=== PATIENT | female | born 1970 | race Caucasian/White ===

== ENCOUNTER 2019-02-06 22:54 | Outpatient (CLI) | payer BC | END 2019-02-06 22:55 | disposition critical access hospital (66) | LOC: EMS 22:54 | PROVIDERS: ATTEND Surgery | DX: R11.2 Nausea with vomiting, unspecified (principal); R09.89 Other specified symptoms and signs involving the circulatory and respiratory systems; F41.9 Anxiety disorder, unspecified | CPT/HCPCS: A0425; A0427 ==

== ENCOUNTER 2019-02-06 23:32 | Emergency (ER) | payer BC ==
--- NOTE | 2019-02-06 23:36 | ED Physician Documentation ---
PD HPI NVD - Stated complaint Stated Complaint: N/V - History obtained from History obtained from: Patient - History of Present Illness Timing - onset: Today Timing - duration: Minutes (Just prior to arrival) Timing - details: Abrupt onset Associated symptoms: No: Fever, Chest pain Contributing factors: No: Sick contact, Bad food Similar symptoms before: Diagnosis (Reports similar symptoms when she had a pulmonary embolus) Recently seen: Not recently seen - Additonal information Additional information: This is a 48-year-old woman who presents by ambulance with complaints that she was vomiting and passing out at home. She has not been around anyone that she knows has been sick and has not eaten any bad food had the same thing that her ate tonight. She was feeling nauseous and everything was spinning prior to vomiting. She had 3 glasses of wine with dinner over about the course of 2 hours so when she started to get the symptoms she went in and drink a bottle of water she tried to sleep but apparently got up and passed out on the living room couch while she was sitting up and then began vomiting. Her says that he witnessed the syncopal episode was sitting next to her on the couch when it happened. It was only a few seconds. There was no seizure activity no incontinence. Patient is complaining now being very chilled and short of breath. She was given some medications in route for the vomiting. She feels like her toes are tingling ever since the room started spinning. Their biggest concern was that she had a pulmonary embolus last year and her symptoms were very similar and her found her "seizing in the bathroom". She was initially treated with Coumadin and then Xarelto. She is not currently on any blood thinners other than aspirin and they are monitoring her D-dimers which have been elevated in the 400 range is even as of November of this year. Patient did have a very busy day spent at pressure washing the house with her . She thought that some dust might of gotten flared up because she was having some mild allergy symptoms with some congestion. She is also been in the middle of a Reanna's flare since November of this year and has had some joint swelling associated with that but denies any peripheral edema. Review of Systems Constitutional: reports: Chills. denies: Fever Eyes: denies: Loss of vision Nose: reports: Rhinorrhea / runny nose, Congestion Throat: denies: Sore throat Cardiac: denies: Chest pain / pressure, Palpitations, Pedal edema Respiratory: reports: Dyspnea. denies: Cough GI: reports: Nausea, Vomiting. denies: Abdominal Pain, Diarrhea : denies: Dysuria, Frequency Skin: denies: Rash Musculoskeletal: reports: Joint swelling Neurologic: reports: Syncope. 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) PD PAST MEDICAL HISTORY - Past Medical History Cardiovascular: Pulmonary embolism Endocrine/Autoimmune: Other (Reanna's thyroiditis) - Present Medications Home Medications: Ambulatory Orders Medication Instructions Recorded Confirmed Aspirin Chewable [[place] 81 mg PO DAILY 02/07/19 02/07/19 Aspirin] Natural Blood Thinners 02/07/19 Thyroid,Pork [[place] Thyroid] 120 mg PO DAILY 02/07/19 02/07/19 - Allergies Allergies/Adverse Reactions: Allergies Allergy/AdvReac Type Severity Reaction Status Date / Time No Known Drug Allergies Allergy Verified 02/06/19 23:38 - Living Situation Living Situation: reports: With spouse/s.o. Living Arrangement: reports: At home - Social History Does the pt drink ETOH?: Yes ETOH Use: Wine PD ED PE NORMAL - Vitals Vital signs reviewed: Yes (Patient is shivering almost uncontrollably.) - General General: Alert and oriented X 3, Well developed/nourished - HEENT HEENT: Atraumatic, PERRL, EOMI, Other (Mucous membranes are dry) - Neck Neck: Supple, no meningeal sign, No adenopathy - Cardiac Cardiac: RRR, No murmur - Respiratory Respiratory: No respiratory distress, Clear bilaterally - Abdomen Abdomen: Normal bowel sounds, Soft, Non tender, No organomegaly - Derm Derm: Normal color, Warm and dry, No rash - Extremities Extremities: No edema - Neuro Neuro: Alert and oriented X 3, Normal speech, Other (There are no gross neurological deficits) - Psych Psych: Normal mood, Normal affect Results - Vitals Vitals: Vital Signs - 24 hr 02/06/19 02/07/19 02/07/19 23:34 01:26 02:32 Temperature 36.5 C 36.6 C 36.6 C Heart Rate 92 98 92 Respiratory 18 18 18 Rate Blood Pressure 144/85 H 142/84 H 136/80 H O2 Saturation 100 96 94 Oxygen O2 Source Room air - EKG (time done) 0001 Rate: Rate (enter#) Rhythm: NSR Intervals: Normal [place] Ischemia: Q waves (III), Non specific changes Compare to prior EKG: Old EKG unavailable - Labs Labs: Laboratory Tests 02/06/19 02/06/19 02/06/19 23:53 23:59 23:59 WBC 9.0 RBC 4.67 Hgb 13.8 Hct 41.5 MCV 88.8 MCH 29.4 MCHC 33.1 RDW 14.3 Plt Count 234 MPV 8.5 Neut # (Auto) 6.2 Lymph # (Auto) 1.8 Piatt # (Auto) 0.7 Eos # (Auto) 0.2 Baso # (Auto) 0.1 Absolute Nucleated RBC 0.00 Nucleated RBC % 0.0 D-Dimer 212.8 Sodium Potassium Chloride Carbon Dioxide Anion Gap BUN Creatinine Estimated GFR (MDRD) Glucose Calcium Total Bilirubin AST ALT Alkaline Phosphatase Total Protein Albumin Globulin Albumin/Globulin Ratio Lipase TSH Urine Color YELLOW Urine Clarity CLEAR Urine pH 7.0 Ur Specific [place] 1.015 Urine Protein NEGATIVE Urine Glucose (UA) NEGATIVE Urine Ketones >=80 H Urine Occult Blood NEGATIVE Urine Nitrite NEGATIVE Urine Bilirubin NEGATIVE Urine Urobilinogen 0.2 (NORMAL) Ur Leukocyte Esterase NEGATIVE Ur Microscopic Review NOT INDICATED Urine Culture Comments NOT INDICATED Urine Opiates Screen NEGATIVE Ur Oxycodone Screen NEGATIVE Urine Methadone Screen NEGATIVE Ur Propoxyphene Screen NEGATIVE Ur Barbiturates Screen NEGATIVE Ur Tricyclics Screen NEGATIVE Ur Phencyclidine Scrn NEGATIVE Ur Amphetamine Screen NEGATIVE U Methamphetamines Scrn NEGATIVE U Benzodiazepines Scrn NEGATIVE Urine Cocaine Screen NEGATIVE U Cannabinoids Screen NEGATIVE Ethyl Alcohol 02/06/19 02/06/19 23:59 23:59 WBC RBC Hgb Hct MCV MCH MCHC RDW Plt Count MPV Neut # (Auto) Lymph # (Auto) Piatt # (Auto) Eos # (Auto) Baso # (Auto) Absolute Nucleated RBC Nucleated RBC % D-Dimer Sodium 141 Potassium 3.3 L Chloride 104 Carbon Dioxide 18 L Anion Gap 19.0 H BUN 20 Creatinine 0.7 Estimated GFR (MDRD) 89 Glucose 102 H Calcium 9.1 Total Bilirubin 0.5 AST 20 ALT 17 Alkaline Phosphatase 58 Total Protein 7.4 Albumin 4.2 Globulin 3.2 Albumin/Globulin Ratio 1.3 Lipase 58 H TSH 0.48 Urine Color Urine Clarity Urine pH Ur Specific [place] Urine Protein Urine Glucose (UA) Urine Ketones Urine Occult Blood Urine Nitrite Urine Bilirubin Urine Urobilinogen Ur Leukocyte Esterase Ur Microscopic Review Urine Culture Comments Urine Opiates Screen Ur Oxycodone Screen Urine Methadone Screen Ur Propoxyphene Screen Ur Barbiturates Screen Ur Tricyclics Screen Ur Phencyclidine Scrn Ur Amphetamine Screen U Methamphetamines Scrn U Benzodiazepines Scrn Urine Cocaine Screen U Cannabinoids Screen Ethyl Alcohol 86.1 PD MEDICAL DECISION MAKING - ED course Complexity details: d/w patient, d/w family ED course: Patient had received antiemetics in route by the ambulance. She had no further vomiting here but was still complaining of feeling a little bit nauseous. Laboratory studies were essentially normal potassium was very minimally depressed at 3.3. Her d-dimer was only 212 which is not only within the normal range but less than what it was for her back in November. I do not see any indication to CT her chest at this time. Results were discussed with her and her she was discharged with 2 Zofran tablets. Her said he was starting even to feel a little bit queasy and then as they discussed it wondered if the chicken that he ate last night may have caused her vomiting. Her blood alcohol level was 0.83 which also could have been a contributing factor. Departure - Departure Disposition: 01 Home, Self Care Clinical Impression: Vomiting Qualifiers: Vomiting type: unspecified Vomiting Intractability: non-intractable Nausea presence: with nausea Qualified Code(s): R11.2 - Nausea with vomiting, unspecified Condition: Good Instructions: ED Nausea Vomiting Follow-Up: Srea Benz MD [Primary Care Provider] - Comments: Clear liquids and then a bland diet as tolerated. May use Zofran if needed every 6 hours. Follow-up with your doctor for re-evaluation if symptoms persist. Discharge Date/Time: 02/07/19 02:38
[2019-02-07 00:07] LABS: MUDS CUTOFF CONCENTRATIONS CUTOFF CONC BELOW:
[2019-02-07 00:09] LABS: BILIRUBIN,URINE NEGATIVE (NEGATIVE); GLUCOSE, URINE (UA) NEGATIVE (NEGATIVE); KETONES,URINE (UA) >=80 mg/dL (NEGATIVE); LEUKOCYTE ESTERASE, URINE NEGATIVE (NEGATIVE); NITRITE,URINE NEGATIVE (NEGATIVE); OCCULT BLOOD,URINE NEGATIVE (NEGATIVE); PROTEIN,URINE NEGATIVE (NEGATIVE); UROBILINOGEN,URINE 0.2 (NORMAL) E.U./dL (NORMAL)
[2019-02-07 00:11] LABS: CLARITY,URINE CLEAR (CLEAR)
[2019-02-07 00:16] LABS: BASOPHILS # (AUTO) 0.1 10^3/uL (0.0-0.1); BASOPHILS % (AUTO) 0.7 %; EOSINOPHILS # (AUTO) 0.2 10^3/uL (0.0-0.7); EOSINOPHILS % (AUTO) 2.6 %; HGB - HEMOGLOBIN 13.8 g/dL (12.0-16.0); LYMPHOCYTES # (AUTO) 1.8 10^3/uL (1.5-3.5); MEAN CORPUSCULAR HEMOGLOBIN 29.4 pg (27.0-31.0); MEAN CORPUSCULAR HGB CONC 33.1 g/dL (32.0-36.0); MEAN CORPUSCULAR VOLUME 88.8 fL (81.0-99.0); MEAN PLATELET VOLUME 8.5 fL (7.9-10.8); MONOCYTES # (AUTO) 0.7 10^3/uL (0.0-1.0); MONOCYTES % (AUTO) 7.7 %; NEUTROPHILS # (AUTO) 6.2 10^3/uL (1.5-6.6); PLT - PLATELET COUNT 234 10^3/uL (130-450); RED BLOOD COUNT 4.67 10^6/uL (4.20-5.40); RED CELL DISTRIBUTION WIDTH 14.3 % (12.0-15.0)
[2019-02-07 00:19] LABS: AMPHETAMINE SCREEN,URINE NEGATIVE (NEGATIVE); BENZODIAZEPINES SCREEN, URINE NEGATIVE (NEGATIVE); COCAINE SCREEN URINE NEGATIVE (NEGATIVE); METHADONE SCREEN, URINE NEGATIVE (NEGATIVE); METHAMPHETAMINES SCREEN, URINE NEGATIVE (NEGATIVE); OPIATE SCREEN, URINE NEGATIVE (NEGATIVE); OXYCODONE SCREEN, URINE NEGATIVE (NEGATIVE); PROPOXYPHENE SCREEN, URINE NEGATIVE (NEGATIVE); TRICYCLIC ANTIDEPRESSANT,URINE NEGATIVE (NEGATIVE)
[2019-02-07 00:31] LABS: ALBUMIN 4.2 g/dL (3.2-5.5); ALBUMIN/GLOBULIN RATIO 1.3 (1.0-2.2); BILIRUBIN,TOTAL 0.5 mg/dL (0.2-1.0); CALCIUM 9.1 mg/dL (8.5-10.3); CREATININE 0.7 mg/dL (0.4-1.0); TOTAL PROTEIN 7.4 g/dL (6.7-8.2)
[2019-02-07] MEDS ORDERED: ONDANSETRON ODT 4 MG Prepack 2 TL PRN (02:30)
[2019-02-07 02:33] VITALS: BP 136/80
== END 2019-02-07 02:38 | disposition home or self-care (01) ==
LOC: EDUNIT# → EDBD → ED 23:32
DX: R11.2 Nausea with vomiting, unspecified (principal); R55 Syncope and collapse; R68.83 Chills (without fever); E06.3 Autoimmune thyroiditis; Z86.711 Personal history of pulmonary embolism; Z79.82 Long term (current) use of aspirin
CPT/HCPCS: 36415; 80053; 80306; 80320; 81001; 81003; 83690; 84443; 85025; 85379; 87086; 93005; 99283